=== PATIENT | female | born 1960 | race Hispanic/Latino ===

== ENCOUNTER 2022-01-04 13:31 | Emergency (ER) | payer SELFPAY ==
[~2022-01-04] VITALS: Ht 152.4 cm; Wt 68.0 kg
[2022-01-04] MEDS ORDERED: CEPHALEXIN500 MG PO (14:47)
[2022-01-04] MEDS ORDERED: ONDANSETRON ODT4 MG PO (14:52)
[2022-01-04] MEDS ORDERED: FAMOTIDINE40 MG PO (14:52)
== END 2022-01-04 15:12 | disposition home or self-care (01) ==
LOC: FSED 13:47
DX: R11.2 Nausea with vomiting, unspecified (principal); K29.70 Gastritis, unspecified, without bleeding; N39.0 Urinary tract infection, site not specified; E11.9 Type 2 diabetes mellitus without complications; I69.354 Hemiplegia and hemiparesis following cerebral infarction affecting left non-dominant side
CPT/HCPCS: 81003; 99282